=== PATIENT | male | born 1995 ===

== ENCOUNTER 2018-01-19 12:34 | Emergency (ER) | payer OTHER ==
--- NOTE | 2018-01-19 15:22 | ED PDOC ---
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 Pain is described as 6/10 and is not radiating. Patient states he has not taken any medications for the pain and further reports that he had a headache once before, x1 year ago. Patient denies nausea, vomiting, fever, nuchal rigidity. PMD: No provider Past Medical History Reviewed: Historical Data, Nursing Documentation, Vital Signs Vital Signs: Last Vital Signs Temp 98.6 F 01/19/18 12:53 Pulse 78 01/19/18 12:53 Resp 20 01/19/18 12:53 BP 132/83 01/19/18 12:53 Pulse Ox 100 01/19/18 12:53 - Medical History PMH: No Chronic Diseases - Surgical History Surgical History: No Surg Hx - Family History Family History: States: Unknown Family Hx - Allergies Allergies/Adverse Reactions: Allergies Allergy/AdvReac Type Severity Reaction Status Date / Time No Known Allergies Allergy Verified 01/19/18 12:51 Review of Systems ROS Statement: Except As Marked, All Systems Reviewed And Found Negative Constitutional: Negative for: Fever ENT: Negative for: Other (nuchal rigidity) Gastrointestinal: Negative for: Nausea, Vomiting Neurological: Positive for: Headache Physical Exam - Reviewed Nursing Documentation Reviewed: Yes Vital Signs Reviewed: Yes - Physical Exam Appears: Positive for: No Acute Distress Head Exam: Positive for: ATRAUMATIC Skin: Positive for: Normal Color, Warm, Dry Eye Exam: Positive for: PERRL, Other Neck: Positive for: Normal Cardiovascular/Chest: Positive for: Regular Rate, Rhythm. Negative for: Murmur Respiratory: Positive for: Normal Breath Sounds. Negative for: Respiratory Distress Lymphatic: Negative for: Other (palpable lymph nodes) Neurologic/Psych: Positive for: public information director II-XII (intact), Other (romberg test was negative) - ECG O2 Sat by Pulse Oximetry: 100 (RA) Pulse Ox Interpretation: Normal Medical Decision Making Medical Decision Making: Initial Time: 13:48 A/P: Patient has headache with no indication of intracranial pathology. Patient will be given Toradol 15 mg IM and Reglan 5 mg PO and will reassess patient. Scribe Attestation: Documented by Sherwin Mcadams , acting as a scribe for Elizabeth Bazan MD Provider Scribe Attestation: All medical record entries made by the Scribe were at my direction and personally dictated by me. I have reviewed the chart and agree that the record accurately reflects my personal performance of the history, physical exam, medical decision making, and the department course for this patient. I have also personally directed, reviewed, and agree with the discharge instructions and disposition. 16:00 Pt with improved symptoms. PT advised to increase water intake and take Tylenol or Motrin for pain. Return parameters discussed and referral for the [facility] given. Disposition - Clinical Impression Clinical Impression: Headache - Disposition Referrals: [facility] [Outside] Disposition Time: 16:00 Condition: IMPROVED Additional Instructions: Follow up with primary medical doctor. Take Tylenol or Motrin for pain and drink plenty of water. Instructions: Headache, Adult (DC) Forms: [employer] (Namibian), [employer] (Bangladeshi) Print Language: MAORI
[2018-01-19 16:22] VITALS: BP 120/78; PULSE 78; RESP 19; TEMP 97.8
[2018-01-19 16:38] VITALS: O2SAT 100
== END 2018-01-19 16:22 | disposition home or self-care (01) ==
LOC: H.ER 12:34
DX: R51 Headache (principal)
CPT/HCPCS: 96372; 99284; J1885

== ENCOUNTER 2018-03-17 11:23 | Emergency (ER) | payer OTHER ==
[2018-03-17 13:24] VITALS: BP 131/74; PULSE 89; RESP 16; TEMP 98; O2SAT 100
--- NOTE | 2018-03-17 15:18 | ED PDOC ---
HPI: General Adult Time Seen by Provider: 03/17/18 13:57 Chief Complaint (Nursing): Foreign Body Chief Complaint (Provider): Foreign Body History Per: Patient History/Exam Limitations: no limitations Onset/Duration Of Symptoms: Hrs Current Symptoms Are (Timing): Still Present Additional Complaint(s): Patient is a 22 y/o male with no significant PMHx who presents to the ED for evaluation of a foreign body sensation in the patient's right ear causing discomfort. Patient reports that he feels like a bug, possibly a cockroach, went into his ear while sleeping. Patient states that he used olive oil and alcohol and that the insect may have come out of his ear. Patient complains of mild loss of hearing and fullness. The patient denies a sore throat, fever, sweat, chills, congestion, or headache. PCP: None Provided Past Medical History Reviewed: Historical Data Vital Signs: Last Vital Signs Temp 98.0 F 03/17/18 12:54 Pulse 89 03/17/18 12:54 Resp 16 03/17/18 12:54 BP 131/74 03/17/18 12:54 Pulse Ox 100 03/17/18 12:54 - Medical History PMH: No Chronic Diseases - Surgical History Surgical History: No Surg Hx - Family History Family History: States: Unknown Family Hx - Allergies Allergies/Adverse Reactions: Allergies Allergy/AdvReac Type Severity Reaction Status Date / Time No Known Allergies Allergy Verified 01/19/18 12:51 Review of Systems ROS Statement: Except As Marked, All Systems Reviewed And Found Negative Constitutional: Negative for: Fever, Chills, Sweats ENT: Positive for: Ear Pain (Mild Right Ear Discomfort), Other (Decreased Hearing and Fullness). Negative for: Nose Congestion, Throat Pain (Sore) Physical Exam - Reviewed Nursing Documentation Reviewed: Yes Vital Signs Reviewed: Yes - Physical Exam Appears: Positive for: No Acute Distress Head Exam: Positive for: ATRAUMATIC, NORMAL INSPECTION, NORMOCEPHALIC Skin: Positive for: Normal Color, Warm, DRY Eye Exam: Positive for: EOMI, Normal appearance, PERRL ENT: Positive for: Normal ENT Inspection, Other (No Foreign Body in Right Ear) Neck: Positive for: Normal Cardiovascular/Chest: Positive for: Regular Rate, Rhythm Respiratory: Positive for: Normal Breath Sounds Gastrointestinal/Abdominal: Positive for: Normal Exam Extremity: Positive for: Normal ROM Neurologic/Psych: Positive for: Alert, Oriented - ECG O2 Sat by Pulse Oximetry: 100 (RA) Pulse Ox Interpretation: Normal Medical Decision Making Medical Decision Making: Time: 1400 Patient given referral for ENT evaluation. Scribe Attestation: Documented by Gurpreet Lloyd, acting as a scribe for La COLON. Provider Scribe Attestation: All medical record entries made by the Scribe were at my direction and personally dictated by me. I have reviewed the chart and agree that the record accurately reflects my personal performance of the history, physical exam, medical decision making, and the department course for this patient. I have also personally directed, reviewed, and agree with the discharge instructions and disposition. Disposition - Clinical Impression Clinical Impression: Foreign body sensation in right ear canal - Patient ED Disposition Is Patient to be Admitted: No Counseled Patient/Family Regarding: Studies Performed, Diagnosis, Need For Followup - Disposition Referrals: [facility] [Outside] Kapil Davis MD [Staff Provider] - Disposition: Routine/Home Disposition Time: 14:00 Condition: STABLE Additional Instructions: No foreign body noted on exam. F/u with ear/nose/throat specialist for further evaluation of fullness in Right ear. Forms: [employer] (Cymro) Print Language: MOHAWK - POA Present On Arrival: None
== END 2018-03-17 15:01 | disposition home or self-care (01) ==
LOC: H.ER 11:23
DX: R09.89 Other specified symptoms and signs involving the circulatory and respiratory systems (principal)